=== PATIENT | male | born 2000 | race Caucasian/White ===

== ENCOUNTER 2020-08-13 16:54 | Emergency (ER) | payer SELFPAY ==
--- NOTE | ~2020-08-13 | XR_ITS ---
EXAMINATION: XR chest 2V DATE: 08/13/2020 17:30 INDICATION: Left lower chest pain. TECHNIQUE: Frontal and lateral views of the chest were obtained. COMPARISON: None. FINDINGS: The chest demonstrates clear lungs without pneumonia, pleural effusion, or pneumothorax. Th e heart size is normal. IMPRESSION: 1. No acute cardiopulmonary disease. Reviewed, dictated and finalized at location A. [facility]
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
--- NOTE | 2020-08-13 17:03 | ECG_ITS ---
Measurements Intervals [place] Rate: 89 P: 80 MD: 132 QRS: 88 QRSD: 97 T: 59 QT: 342 QTc: 417 Interpretive Statements SINUS RHYTHM ST ELEVATION IN ANT/INF LEADS- PROBABLY EARLY REPOLARIZATION BASELINE WANDER- AVR, AVF, V1-V2 BORDERLINE ECG Electronically Signed On 08-13-2020 17:52:11 [employer] by Antonio Arnold D.O.
[2020-08-13 17:21] VITALS: BP 124/73; PULSE 91; RESP 20; TEMP 36.7; O2SAT 98
[2020-08-13 17:26] LABS: Base Excess ABG -4.2 mmol/L (0-2); Carboxyhemoglobin 0.1 % (0-1.5); HCO3 ABG 18.8 mmol/L (23-29); Methemoglobin ABG 0.2 % (0-1.5); Oxygen Content ABG 22.7 %vol (16.0-22.0); Oxygen Saturation ABG 97.4 % (95-97); Oxyhemoglobin 97.1 % (94-100); PCO2 ABG 30.1 mmHg (35-45); PO2 ABG 92.8 mmHg (80-90); Reduced Hemoglobin 2.6 % (0-1.5); Total Hemoglobin 16.6 g/dL; pH ABG 7.41 (7.35-7.45)
[2020-08-13 17:30] LABS: Device ROOM AIR; Modified Allen's Test Pass; Site Drawn LEFT RADIAL
[2020-08-13 17:31] LABS: Basophils Absolute Auto 0.03 K/mm3 (0.00-0.10); Basophils Percent Auto 0.4 % (0.0-1.0); Hematocrit 49.4 % (40.0-54.0); Hemoglobin 16.2 g/dL (14.0-18.0); Immature Granulocyte Absolute 0.02 K/mm3 (0.00-0.00); Immature Granulocyte Percent A 0.3 % (0.0-0.0); Lymphocytes Percent Auto 14.1 % (18.0-42.0); Mean Corpuscular HGB Conc 32.8 g/dL (32.0-36.0); Mean Corpuscular Hemoglobin 30.7 pg (27.0-31.0); Mean Corpuscular Volume 93.7 fL (78.0-102.0); Mean Platelet Volume 9.2 fl (8.7-11.0); Monocytes Percent Auto 5.6 % (2.0-11.0); Neutrophils Absolute Auto 5.7 K/mm3 (1.7-7.2); Neutrophils Percent Auto 79.6 % (50.0-70.0); Platelet Count Result 253 K/mm3 (150-420); Red Blood Count 5.27 M/mm3 (4.70-6.10); White Blood Count 7.1 K/mm3 (4.8-10.8)
[2020-08-13 17:40] LABS: Amphetamine Screen Urine Negative (Negative); Barbiturate Screen Urine Negative (Negative); Benzodiazepines Screen Urine Negative (Negative); Cannabinoid Screen Urine Positive (Negative); Cocaine Screen Urine Negative (Negative); Methadone Screen Urine Negative (Negative); Opiate Screen Urine Negative (Negative); Phencyclidine Screen Urine Negative (Negative)
[2020-08-13 17:45] VITALS: BP 124/75; PULSE 82; RESP 20; O2SAT 100
[2020-08-13] MEDS: SODIUM CHLORIDE 0.9% IV 1,000 ML 999 ML IV CONT (17:53)
[2020-08-13 17:54] LABS: Alanine Aminotransferase 19 U/L (16-63); Albumin Level 5.1 g/dL (3.4-5.0); Alkaline Phosphatase 59 U/L (46-116); Anion Gap 17 mmol/L (8-16); Aspartate Amino Transferase 15 U/L (15-37); Bilirubin,Total 0.6 mg/dL (0.00-1.00); Blood Urea Nitrogen 8 mg/dL (7-18); Calcium 9.9 mg/dL (8.5-10.1); Carbon Dioxide 23 mmol/L (21-32); Chloride 99 mmol/L (98-108); Estimated Glomerular Filt Rate > 60; Ethanol 4 mg/dL (0-6); Glucose 175 mg/dL (70-99); Osmolality Calculated 290 mOsm/kg (285-295); Potassium 3.4 mmol/L (3.5-5.1); Salicylate 3.2 mg/dL (2.8-20.0); Sodium 139 mmol/L (136-145); Thyroid Stimulating Hormone 0.71 uIU/mL (0.36-3.74); Total Protein 8.6 g/dL (6.4-8.2)
[2020-08-13 17:56] LABS: Acetaminophen 0 ug/mL (10-30)
[2020-08-13 18:01] LABS: Add Urine Microscopic? YES; Appearance Urine Clear (Clear); Bilirubin Urine Negative (Negative); Blood Urine 1+ (Negative); Color Urine Yellow (Yellow); Glucose Urine UA Negative (Negative); Ketones Urine 1+ (Negative); Leukocyte Esterase Ur Negative LEU/UL (Negative); Nitrate Urine Negative (Negative); Protein Urine Trace (Negative); Specific Grav Ur 1.025 (1.010-1.020); Urobilinogen Urine 0.2 mg/dL (0.2-1.0)
[2020-08-13 18:10] LABS: Ammonia 48 umol/L (11-32); Bacteria Urine Trace /hpf; RBC Urine 0-2 /hpf (0-2); WBC Urine 0-3 /hpf (0-3)
[2020-08-13 18:55] VITALS: BP 125/75; PULSE 84; RESP 20; O2SAT 100
== END 2020-08-13 19:10 | disposition home or self-care (01) ==
PROVIDERS: Emergency Provider Emergency Medicine
DX: R41.82 Altered mental status, unspecified (principal); E86.0 Dehydration; E72.20 Disorder of urea cycle metabolism, unspecified; F17.200 Nicotine dependence, unspecified, uncomplicated
CPT/HCPCS: 36415; 36600; 71046; 80053; 80307; 81001; 82140; 82375; 82805; 83050; 84443; 85025; 93005; 96360; 99283; 99284; J7030